=== PATIENT | female | born 1965 | race Caucasian/White ===

== ENCOUNTER → 2022-11-01 | Outpatient (CLI) | payer BC ==
--- NOTE | 2022-11-02 05:50 | US ---
EXAMINATION TYPE: US kidneys/renal and bladder DATE OF EXAM: 11/01/2022 COMPARISON: NONE CLINICAL HISTORY: R31.9 HEMATURIA, UNSPECIFIED. Pt states microscopic hematuria EXAM MEASUREMENTS: Right Kidney: 12.4 x 4.2 x 5.2 cm Left Kidney: 11.4 x 4.8 x 5.2 cm Right Kidney: No evidence of hydro, hyperechoic lesion mid/lateral= 0.8 x 0.6 x 0.6 cm Left Kidney: No evidence of hydro, hyperechoic lesion lower/lateral= 0.9 x 0.7 x 0.7 cm Bladder: wnl Bilateral Jets seen: No There is no evidence for hydronephrosis at this point in time. Nonshadowing round hyperechoic foci b ilaterally are noted. No masses are identified. The urinary bladder is adequately distended. Bilate ral ureteral jets are noted seen. IMPRESSION: Suspect bilateral nonobstructing nephrolithiasis. Advise CT follow-up to confirm.
== END | disposition home or self-care (01) ==
LOC: RADUSWWP 16:15
PROVIDERS: ATTEND Family Medicine
DX: R31.29 Other microscopic hematuria (principal)
CPT/HCPCS: 76770

== ENCOUNTER 2025-03-01 09:08 | Day surgery (SDC) | payer BC ==
[2025-03-01 09:48] VITALS: RESP 16; TEMP 98.2
[2025-03-01] MEDS: LACTATED RINGERS 1,000 ML IV SCH (09:48)
[2025-03-01] MEDS: LIDOCAINE 1% (10MG/ML) FOR IV START INTRADERMA PRN (09:49)
[2025-03-01] MEDS: IV FLUID CONTINUATION 1,000 ML IV ONE (09:49)
[2025-03-01] MEDS ORDERED: PROPOFOL 10 MG/ML 20 ML VIAL IV ONE (10:15)
--- NOTE | 2025-03-01 10:35 | P.PCN ---
Date of Procedure: 03/01/25 Procedure(s) Performed: BRIEF HISTORY: Patient is a 59-year-old pleasant white female scheduled for an elective colonoscopy as a part of screening for colon cancer. PROCEDURE PERFORMED: Colonoscopy. PREOPERATIVE DIAGNOSIS: Screening for colon cancer. IV sedation per Anesthesia. PROCEDURE: After informed consent was obtained, the patient, was brought into the endoscopy unit. IV sedation was administered by Anesthesia under continuous monitoring. Digital rectal examination was normal. Initially the Olympus CF-160 flexible video colonoscope was then inserted in the rectum, gradually advanced into the cecum without any difficulty. Careful examination was performed as the scope was gradually being withdrawn. Ileocecal valve and the appendiceal orifice were visualized and appeared normal. Prep was excellent. Mucosa of the cecum, ascending colon, transverse colon, descending colon, sigmoid colon, and rectum appeared normal. Retroflexion was performed in the rectum and no lesions were seen. The patient tolerated the procedure well. IMPRESSION: Normal-appearing colon from rectum to cecum with no evidence of colorectal neoplasia. RECOMMENDATIONS: Findings of this examination were discussed with the patient as well as her family. She was advised to have repeat screening colonoscopy in 10 years.
[2025-03-01 10:58] VITALS: BP 141/85; PULSE 84
== END 2025-03-01 11:21 | disposition home or self-care (01) ==
LOC: ORWHC2ENDO 09:08
PROVIDERS: ATTEND Internal Medicine Gastroenterology
DX: Z12.11 Encounter for screening for malignant neoplasm of colon (principal)
CPT/HCPCS: 45378; J2704